=== PATIENT | female | born 1945 | race Caucasian/White ===

== ENCOUNTER 2017-09-22 23:57 | Emergency (ER) | payer MEDICARE, BC ==
[~2017-09-22] VITALS: Ht 170.2 cm; Wt 59.0 kg
[2017-09-23] MEDS ORDERED: MORPHINE SULFATE INJ 4 MG/ML DISP.SYRIN ONE (00:07)
--- NOTE | 2017-09-23 00:10 | NUR ---
TO BED 9 A 72 YO FEMALE PT BBRA FROM HOME C/O "SOB DURING INSPIRATION DUE TO UPPER BACK PAIN MAKING IT DIFFICULT TO TAKE DEEP BREATHS".PAIN 6/.SPO2 97% RA. BP 97/68 IN FIELD. UPON ARRIVAL, PATIENT IS AAOX3, VSS. NAD NOTED. SKIN WARM AND DRY. COMFORT MEASURES RENDERED. ONGOING CARDIAC AND VS MONITORING.
[2017-09-23] MEDS ORDERED: ONDANSETRON HCL/PF 4 MG/2 ML VIAL ONE (00:24)
[2017-09-23] MEDS: ONDANSETRON HCL/PF 4 MG/2 ML VIAL IV ONE (00:25)
--- NOTE | 2017-09-23 00:25 | NUR ---
started a saline lock on the left forearm g20, blood drawn and sent to lab.
[2017-09-23] MEDS: MORPHINE SULFATE INJ 2 MG/ML DISP.SYRIN IV ONE (00:28)
--- NOTE | 2017-09-23 00:30 | NUR ---
medicated patient as ordered by Dr Briscoe.
[2017-09-23 00:32] LABS: BASOPHILS % (AUTO) 0.4 % (0.0-2.0); EOSINOPHILS # (AUTO) 0.3 /CMM (0.0-0.7); EOSINOPHILS % (AUTO) 7.2 % (0.0-6.0); HEMATOCRIT 35 % (33-45); HEMOGLOBIN 11.9 g/dL (11.5-14.8); LYMPHOCYTES # (AUTO) 0.7 /CMM (0.8-4.8); LYMPHOCYTES % (AUTO) 14.7 % (20.0-44.0); MEAN CORPUSCULAR HEMOGLOBIN 32 PG (26.0-33.0); MEAN CORPUSCULAR HGB CONC 34 g/dl (31.0-36.0); MEAN CORPUSCULAR VOLUME 94 fL (82-100); MONOCYTES # (AUTO) 0.6 /CMM (0.1-1.30); MONOCYTES % (AUTO) 12.8 % (2.0-12.0); NEUTROPHILS # (AUTO) 2.9 /CMM (1.8-8.9); NEUTROPHILS % (AUTO) 64.9 % (43.0-81.0); PLATELET COUNT (AUTO) 202 /CMM (150-450); RDW COEFFICIENT OF VARIATION 13.7 (11.5-15.0); RED BLOOD CELL COUNT(AUTO) 3.67 MIL/uL (4.0-5.2); WHITE BLOOD COUNT (AUTO) 4.4 K/uL (4.3-11.0)
[2017-09-23 00:43] LABS: CALCIUM, SERUM 8.7 mg/dL (8.5-10.1); CARBON DIOXIDE 26 mmol/L (21-32); CHLORIDE 94 mmol/L (98-107); CREATININE 0.7 mg/dL (0.6-1.3); GLUCOSE 89 mg/dL (74-106); POTASSIUM 4.1 mmol/L (3.5-5.1); SODIUM SERUM 129 mmol/L (136-145); UREA NITROGEN, BLOOD 11 mg/dL (7-18)
--- NOTE | 2017-09-23 00:46 | NUR ---
WAREHOUSE DELIVERY MANAGER AT BEDSIDE.
[2017-09-23 00:47] LABS: INR 2.2 (0.87-1.13)
[2017-09-23 00:51] LABS: TROPONIN I < 0.017 ng/mL (0.00-0.056)
--- NOTE | 2017-09-23 02:49 | NUR ---
IV removed. Catheter intact and site benign. Pressure and 4x4 applied to site. No bleeding noted. Patient discharged to home in stable condition. Written and verbal after care instructions given. Patient verbalizes understanding of instruction. Patient wheeled to private car, instructed not to drive. patient was accompanied by . vss. nad noted. no further complaints.
[2017-09-23 02:50] VITALS: BP 105/60
== END 2017-09-23 02:50 | disposition home or self-care (01) ==
LOC: ER 23:58
DX: S29.012A Strain of muscle and tendon of back wall of thorax, initial encounter (principal); I48.91 Unspecified atrial fibrillation; Z88.8 Allergy status to other drugs, medicaments and biological substances; Z85.118 Personal history of other malignant neoplasm of bronchus and lung; X58.XXXA Exposure to other specified factors, initial encounter; Y93.89 Activity, other specified; Y92.89 Other specified places as the place of occurrence of the external cause; Y99.8 Other external cause status
CPT/HCPCS: 36415; 71045-TC; 76770-TC; 80048-TC; 84484-TC; 85025-TC; 85730-TC; A4606; J2270; J2405; Z7610

== ENCOUNTER 2017-10-25 13:49 | Inpatient (IN) | payer MEDICARE, BC ==
[2017-10-24 20:00] VITALS: BP 94/47
[~2017-10-25] VITALS: Ht 165.1 cm; Wt 64.0 kg
--- NOTE | 2017-10-25 14:08 | NUR ---
BIBRA C/O WEAKNESS, HYPOTENSIVE IN FIELD. RECEIVED 250 ML NS IV EN ROUTE, IV ON LEFT HAND, 20G. A/OX 2, BREATHING EVEN AND UNLABORED, BUT HYPOXIC ON ROOM AIR UPON ARRIVAL. 78% ON ROOM AIR. OXYGEN APPLIED VIA NON REBREATHER. NO DISTRESS NOTED. SAFETY AND COMFORT MEASURES IN PLACE. AWAITING MD ORDERS.
[2017-10-25] MEDS ORDERED: PIPERACILLIN /TAZOBACTAM 3.375 G in IV D5W 50 ML IV ONE (14:30)
[2017-10-25] MEDS ORDERED: ALBUTEROL FS 2.5 MG/0.5 ML VIAL.NEB NEB ONE (14:30)
[2017-10-25] MEDS ORDERED: IPRATROPIUM NEB FS 0.5 MG/2.5 ML AMPUL.NEB NEB ONE (14:30)
[2017-10-25] MEDS ORDERED: IV NS 0.9% 1,000 ML BAG IV ONE (14:30)
[2017-10-25 14:40] LABS: BASOPHILS % (AUTO) 0.6 % (0.0-2.0); EOSINOPHILS # (AUTO) 0.4 /CMM (0.0-0.7); EOSINOPHILS % (AUTO) 8.3 % (0.0-6.0); HEMATOCRIT 31 % (33-45); HEMOGLOBIN 10.8 g/dL (11.5-14.8); LYMPHOCYTES # (AUTO) 0.7 /CMM (0.8-4.8); LYMPHOCYTES % (AUTO) 15.9 % (20.0-44.0); MEAN CORPUSCULAR HEMOGLOBIN 31 PG (26.0-33.0); MEAN CORPUSCULAR HGB CONC 35 g/dl (31.0-36.0); MEAN CORPUSCULAR VOLUME 91 fL (82-100); MONOCYTES # (AUTO) 0.7 /CMM (0.1-1.30); NEUTROPHILS # (AUTO) 2.8 /CMM (1.8-8.9); NEUTROPHILS % (AUTO) 60.2 % (43.0-81.0); PLATELET COUNT (AUTO) 182 /CMM (150-450); RED BLOOD CELL COUNT(AUTO) 3.45 MIL/uL (4.0-5.2); WHITE BLOOD COUNT (AUTO) 4.6 K/uL (4.3-11.0)
[2017-10-25] MEDS ORDERED: FLEC100T2 PO (14:41)
[2017-10-25] MEDS ORDERED: ATEN25TA PO (14:41)
[2017-10-25] MEDS ORDERED: OXYC-128 PO (14:41)
[2017-10-25] MEDS ORDERED: WARF2.5T47 PO (14:41)
[2017-10-25] MEDS ORDERED: IPRATROPIUM NEB FS 0.5 MG/2.5 ML AMPUL.NEB ONE (14:45)
[2017-10-25] MEDS ORDERED: ALBUTEROL FS 2.5 MG/3 ML VIAL.NEB ONE (14:45)
[2017-10-25 14:53] LABS: CALCIUM, SERUM 8.9 mg/dL (8.5-10.1); CARBON DIOXIDE 25 mmol/L (21-32); CHLORIDE 105 mmol/L (98-107); CREATININE 1.2 mg/dL (0.6-1.3); GLUCOSE 90 mg/dL (74-106); POTASSIUM 3.5 mmol/L (3.5-5.1); SODIUM SERUM 137 mmol/L (136-145); UREA NITROGEN, BLOOD 22 mg/dL (7-18)
[2017-10-25 14:55] LABS: INR 1.5 (0.85-1.15)
[2017-10-25 14:59] LABS: ALANINE AMINOTRANSFERASE 15 U/L (12-78); ALKALINE PHOSPHATASE 98 U/L (46-116); ASPARTATE AMINOTRANSFERASE 30 U/L (15-37); BILIRUBIN,DIRECT 0.2 mg/dL (0.0-0.2); BILIRUBIN,TOTAL 0.8 mg/dL (0.2-1.0); TOTAL PROTEIN, SERUM 5.1 g/dL (6.4-8.2)
[2017-10-25 15:00] LABS: TROPONIN I 0.089 ng/mL (0.00-0.056)
--- NOTE | 2017-10-25 15:05 | NUR ---
URINE OBTAINED VIA STRAIGHT CATH AND SENT TO LAB PER MD ORDERS.
[2017-10-25 15:08] LABS: APPEARANCE,URINE Clear (CLEAR); BILIRUBIN,URINE MODERATE (NEGATIVE); BLOOD, URINE Negative Ery/uL (NEGATIVE); COLOR,URINE Dark (YELLOW); KETONES,URINE 15 (NEGATIVE); LEUKOCYTE ESTERASE ,URINE Negative (NEGATIVE); NITRITE, URINE Negative (NEGATIVE); PH,URINE 5.5 (5.0-8.0); PROTEIN,URINE 30 mg/dl (NEGATIVE); UGLUCOSE Negative (NEGATIVE); UROBILINOGEN,URINE 0.2 EU/dL (0.2)
[2017-10-25 15:13] LABS: BACTERIA,URINE Few /HPF (None Seen); SQUAMOUS EPITHELIAL CELL,UR Few /HPF (None Seen)
[2017-10-25] MEDS ORDERED: IOHEXOL-300 100 ML VIAL IV ONE (15:21)
[2017-10-25] MEDS ORDERED: CT SWABBABLE VALVE TRANS SET 1 EA INFUS.SET MC ONE (15:22)
[2017-10-25] MEDS ORDERED: IV NS 0.9% 500 ML IV ONE (15:22)
[2017-10-25] MEDS ORDERED: diphenhydrAMINE HCL 50 MG/ML VIAL ONE (15:28)
[2017-10-25] MEDS ORDERED: diphenhydrAMINE HCL 50 MG/ML VIAL IV ONE (15:30)
--- NOTE | 2017-10-25 16:51 | NUR ---
PATIENT TAKEN TO HEAD CT VIA STRETCHER.
--- NOTE | 2017-10-25 16:51 | NUR ---
UPDATED BED 113-2 CAROLINE
--- NOTE | 2017-10-25 16:59 | NUR ---
REPORT GIVEN TO STERLING LOBO FOR JOHN UPON ADMISSION.
[2017-10-25] MEDS ORDERED: oxyCODONE/APAP (5/325 MG) 1 UDTAB TABLET PO PRN (17:00)
--- NOTE | 2017-10-25 17:10 | NUR ---
PATIENT RETURNED FROM CT.
--- NOTE | 2017-10-25 17:15 | NUR ---
PATIENT TRANSPORTED TO [facility] VIA ACLS PROTOCOL. RNSTERLING TO PROVIDE JOHN.
[2017-10-25] MEDS ORDERED: MAG HYDROX/AL HYDROX/SIMETH 30 ML UDC PO PRN (17:30)
[2017-10-25] MEDS ORDERED: Z GUARD REMEDY 2 OZ OINT TP PRN (17:30)
[2017-10-25] MEDS ORDERED: ONDANSETRON HCL/PF 4 MG/2 ML VIAL IVP PRN (17:30)
[2017-10-25] MEDS ORDERED: MAGNESIUM HYDROXIDE 30 ML UDC PO PRN (17:30)
[2017-10-25] MEDS: ACETYLCYSTEINE 20% SOLN 800 MG/4 ML VIAL NEB SCH (17:30)
--- NOTE | 2017-10-25 17:30 | NUR ---
CAROLINE RN NOTE RECEIVED PT. FROM ER WITH DX HYPOTENSION, POST OBSTRUCTIVE PNA, HYPOXIA UNDER THE CARE OF DR. GENET GIRARD. PT. IS ALERT AND ORIENTED X2, ON 5LPM VIA NASAL CANNULA WITH O2 SAT OF 98%; PT. ON TELE SR 95 .LT HANF HL INTACT NO S]INFECTION NOTED , PLAN OF CARE DISCUSSED WITH PATIENT , BED IN LOWEST AND LOCKED POSITION , AT BEDSIDE , VS TAKEN WILL CONT TO MONITOR CLOSELY ,
[2017-10-25 17:43] VITALS: BP 81/47
[2017-10-25] MEDS: WARFARIN SODIUM 5 MG TABLET PO SCH (18:27)
[2017-10-25] MEDS ORDERED: WARFARIN SODIUM 2.5 MG TABLET PO SCH (18:30)
[2017-10-25] MEDS ORDERED: AZITHROMYCIN 500 MG in IV D5W 250 ML IV SCH (18:30)
[2017-10-25] MEDS: IV NS 0.9% 1,000 ML IV PRN (18:30)
[2017-10-25] MEDS: CEFTRIAXONE 1 G in IV D5W 50 ML IV SCH (19:01)
[2017-10-25 20:00] VITALS: BP 94/47
--- NOTE | 2017-10-25 20:00 | NUR ---
RN NOTES RECEIVED BEDSIDE REPORT. PT IS IS ALERT/ORIENTED X2, ON 5LPM VIA NASAL CANNULA WITH O2 SAT 96%,B/P 94/47, HR-95, IV LINE RIGHT HAND DRY, CLEAN, INTACT AND PATENT WITH NS RUNNING 75ML/HR. PT'S IS BEDSIDE, TALKED TO THE ABOUT HOME MED. DOSE. SAFETY PRECAUTIONS ARE IMPLEMENTED, BED IN LOCKED, LOWEST POSITION, SIDE RAILS UP X2, CALL LIGHT IN REACH. WILL CONTINUE CLOSE MONITORING V/S.
[2017-10-25] MEDS: ATENOLOL 25 MG TABLET PO SCH (21:00)
[2017-10-25] MEDS: FLECAINIDE ACETATE (100 MG) 100 MG TABLET PO SCH (21:27)
[2017-10-25] MEDS: DOXYCYCLINE 100 MG in IV D5W 100 ML IV SCH (21:28)
[2017-10-26] VITALS (7 sets, daily range): BP systolic 81–138; BP diastolic 47–72
[2017-10-26] MEDS: ACETYLCYSTEINE 20% SOLN 800 MG/4 ML VIAL NEB SCH ×4 (00:10→23:36)
[2017-10-26] MEDS ORDERED: IV NS 0.9% 500 ML IV ONE (01:00)
--- NOTE | 2017-10-26 01:00 | NUR ---
CAROLINE RN NOTES PT B/P IS 84/54. SPOKE TO THE DR BADILLO WITH ORDER OF NS 500ML BOLUS X1. ORDER IS NOTED AND CARED OUT. WILL CONT. TO MONITOR.
[2017-10-26] MEDS: ACETAMINOPHEN 325 MG TABLET PO PRN ×2 (01:07→20:40)
--- NOTE | 2017-10-26 06:20 | NUR ---
CAROLINE RN NOTES PT IS IN BED, A/O X3. NO LABORED BREATHING NO SOB NOTED AT THIS TIME. SATURATION WITH 5L O2 NC IS 96%, B/P 90/47. IV LINE INTACT, PATIENT AND NS 75ML/HR RUNNING. ALL SAFETY PRECAUTIONS IMPLEMENTED, BED IN LOCKED, LOWEST POSITION, CALL LIGHT IN REACH. ALL DR ORDERS CARRIED OUT IN TIMELY MANNERS. PT CARE WILL BE ENDORSED TO AM NURSE.
[2017-10-26 06:54] LABS: BASOPHILS % (AUTO) 0.4 % (0.0-2.0); EOSINOPHILS # (AUTO) 0.3 /CMM (0.0-0.7); EOSINOPHILS % (AUTO) 7.1 % (0.0-6.0); HEMATOCRIT 27 % (33-45); HEMOGLOBIN 9.1 g/dL (11.5-14.8); LYMPHOCYTES # (AUTO) 0.8 /CMM (0.8-4.8); LYMPHOCYTES % (AUTO) 20.1 % (20.0-44.0); MEAN CORPUSCULAR HEMOGLOBIN 31 PG (26.0-33.0); MEAN CORPUSCULAR HGB CONC 33 g/dl (31.0-36.0); MEAN CORPUSCULAR VOLUME 91 fL (82-100); MONOCYTES # (AUTO) 0.7 /CMM (0.1-1.30); NEUTROPHILS # (AUTO) 2.1 /CMM (1.8-8.9); NEUTROPHILS % (AUTO) 54.4 % (43.0-81.0); PLATELET COUNT (AUTO) 134 /CMM (150-450); RDW COEFFICIENT OF VARIATION 13.4 (11.5-15.0); WHITE BLOOD COUNT (AUTO) 3.9 K/uL (4.3-11.0)
[2017-10-26 07:10] LABS: INR 1.61 (0.87-1.13)
[2017-10-26 07:18] LABS: ALANINE AMINOTRANSFERASE 15 U/L (12-78); ALBUMIN 1.8 g/dL (3.4-5.0); ALKALINE PHOSPHATASE 87 U/L (46-116); ASPARTATE AMINOTRANSFERASE 25 U/L (15-37); BILIRUBIN,TOTAL 0.6 mg/dL (0.2-1.0); CALCIUM, SERUM 8.3 mg/dL (8.5-10.1); CARBON DIOXIDE 23 mmol/L (21-32); CHLORIDE 109 mmol/L (98-107); CREATININE 0.7 mg/dL (0.6-1.3); GLUCOSE 87 mg/dL (74-106); MAGNESIUM 1.3 mg/dL (1.8-2.4); PHOSPHORUS 2.9 mg/dL (2.5-4.9); POTASSIUM 2.9 mmol/L (3.5-5.1); SODIUM SERUM 141 mmol/L (136-145); TOTAL PROTEIN, SERUM 4.4 g/dL (6.4-8.2); UREA NITROGEN, BLOOD 16 mg/dL (7-18)
[2017-10-26 07:22] LABS: CHOLESTEROL 79 mg/dL (<200); HDL CHOLESTEROL 12 mg/dL (40-60); LDL 49 mg/dL (0-99); THYROID STIMULATING HORMONE 1.106 uIU/mL (0.358-3.74); TRIGLYCERIDES 99 mg/dL (30-150)
--- NOTE | 2017-10-26 08:00 | NUR ---
TD/RN AM SHIFT INITIAL NOTES RECEIVED PT AWAKE SITTING IN BED, PT A/O X 3, DENIES ANY SYMPTOMS, NO ACUTE CHANGE OF CONDITION NOTED. ON 4L O2 SATURATING @ 96%, LUNG SOUNDS DIMINISHED. RESPIRATIONS EVEN & UNLABORED. ON TELE MONITORING, SINUS RHYTHM, HR 88. WITH ON GOING IV INFUSION OF NS @ 75CC/HR, IV SITE PATENT WITH NO S/S OF INFECTION. PT IS COMFORTABLE, SCHEDULED AM MEDS TO BE GIVEN. CL WITHIN REACHED AND SAFETY MAINTAINED. ON GOING MONITORING.
[2017-10-26] MEDS: ATENOLOL 25 MG TABLET PO SCH ×2 (08:20→20:42)
[2017-10-26] MEDS: FLECAINIDE ACETATE (100 MG) 100 MG TABLET PO SCH ×2 (08:23→20:41)
--- NOTE | 2017-10-26 09:18 | NUR ---
TD/RN ROUNDS - WOUND CONSULT UPDATED PT'S CONDITION. PT SEEN & EVALUATED BY WOUND NURSE MELANIE. NO NEW ORDERS FOR SKIN TX AT THIS TIME. MONITORING CONTINUED.
--- NOTE | 2017-10-26 09:19 | NUR ---
WOUND CARE CONSULT: PT PRESENTS WITH INTACT SKIN AND SOME SCRATCH SHINE TO CHEST AND BUTTOCKS. PT STATES THAT SHE SCRATCHES HER SKIN. RECOMMENDATIONS MADE FOR SKIN PROTECTION. DISCUSSED WITH NURSING STAFF. WILL SEE PRN. CURRENT BIRD SCORE IS 12. MD IN AGREEMENT WITH PLAN OF CARE. Addendum: 10/26/17 at 0920 by MELANIE JAMES WNDNU Amended: Links added.
[2017-10-26] MEDS: DOXYCYCLINE 100 MG in IV D5W 100 ML IV SCH ×2 (09:22→20:40)
[2017-10-26] MEDS ORDERED: POTASSIUM CHLORIDE 20 MEQ TAB.PRT.SR PO ONE (10:00)
[2017-10-26] MEDS: IV NS 0.9% 1,000 ML IV PRN (10:16)
[2017-10-26 10:20] LABS: ABG BASE EXCESS -4.7 mmol/L; ABG OXYGEN SATURATION 94.2 % (92.0-98.5); ABG PCO2 34.5 mmHg (35.0-45.0); ABG PH 7.377 (7.350-7.450); ABG PO2 77.1 mmHg (75.0-100.0); AaDO2 110.7 mmHg; COHb 0.3 % (0.5-1.5); MetHb 0.5 % (0.0-1.5); O2Hb 93.4 % (94.0-97.0); SITE, ABG Right Radial; VENT MODE, BG NASAL CANNULA
[2017-10-26] MEDS ORDERED: Magnesium 1GM/D5W 100ML PREMIX PIGGYBACK IV ONE (10:30)
[2017-10-26] MEDS: Magnesium 1GM/D5W 100ML PREMIX 100 ML IV SCH ×4 (11:25→16:31)
[2017-10-26] MEDS ORDERED: Z GUARD REMEDY 4 OZ OINT TP ONE (13:00)
--- NOTE | 2017-10-26 14:45 | NUR ---
TD/RN ROUNDS PT RESTING COMFORTABLY. NO CHANGE OF CONDITION. MONITORING CONTINUED.
[2017-10-26] MEDS: ALBUTEROL HALF STRENGTH 1.25 MG/3 ML VIAL.NEB NEB SCH ×2 (15:53→19:29)
[2017-10-26] MEDS: IPRATROPIUM NEB FS 0.5 MG/2.5 ML AMPUL.NEB NEB SCH ×2 (15:53→19:29)
[2017-10-26] MEDS ORDERED: Magnesium 1GM/D5W 100ML PREMIX 100 ML IV SCH (16:00)
[2017-10-26] MEDS: GUAIFENESIN LA 600 MG TABLET.SA PO SCH ×2 (16:32→20:41)
[2017-10-26 16:58] LABS: INR 1.48 (0.87-1.13)
[2017-10-26] MEDS: WARFARIN SODIUM 5 MG TABLET PO SCH (17:30)
[2017-10-26] MEDS: CEFTRIAXONE 1 G in IV D5W 50 ML IV SCH (17:38)
--- NOTE | 2017-10-26 18:39 | NUR ---
patient is alert and pleasant. She lives locally with spouse. She is ambulatory, uses a walker as needed and she is independent with adl's. Patient owns a walker, no homehealth reported. Spouse is her primary source of support. Addendum: 10/26/17 at 1840 by JONO HOWARD RN Amended: Links added.
--- NOTE | 2017-10-26 19:23 | NUR ---
TD/RN AM SHIFT END NOTES PATIENT IS ALERT ,ORIENTED WITH PERIODS OF CONFUSION.NO ACUTE CHANGE OF CONDITION DURING THE SHIFT . ONGOING IV THERAPY WITH NS WITH 75CC/HR . IV LINE IS PATENT AND INTACT WITH NO SIGNS AND SYMPTOMS OF INFILTRATION.ON TELE MONITOR WITH NORMAL SINUS RHYTHM. ALL NEEDS MET. PATIENT IS ENDORSED TO PM NURSE TO CONTINUE CARE.SAFETY MAINTAINED ,BED ALARM IS ON,CALL LIGHT WITH IN REACHED.
--- NOTE | 2017-10-26 19:47 | NUR ---
CAROLINE RN INITIAL NOTES RECEIVED PT ASLEEP IN BED, PT A/O X 2, DENIES ANY SYMPTOMS, NO ACUTE CHANGE OF CONDITION NOTED. ON 4L O2 SATURATING @ 96%, LUNG SOUNDS DIMINISHED. RESPIRATIONS EVEN & UNLABORED. ON TELE MONITORING, SINUS RHYTHM, HR 80'S. WITH ON GOING IV INFUSION OF NS @ 75CC/HR, IV SITE PATENT WITH NO S/S OF INFECTION. PT IS COMFORTABLE. CL WITHIN REACHED AND SAFETY MAINTAINED. ON GOING MONITORING.
[2017-10-27] VITALS (7 sets, daily range): BP systolic 78–132; BP diastolic 56–84
[2017-10-27] MEDS: IPRATROPIUM NEB FS 0.5 MG/2.5 ML AMPUL.NEB NEB SCH ×5 (01:51→23:41)
[2017-10-27] MEDS: ALBUTEROL HALF STRENGTH 1.25 MG/3 ML VIAL.NEB NEB SCH ×5 (01:51→23:41)
[2017-10-27] MEDS: IV NS 0.9% 1,000 ML IV PRN ×2 (05:20→21:12)
--- NOTE | 2017-10-27 07:00 | NUR ---
RN NOTES RECEIVED PT ON BED, A/Ox1, ON 3L O2 N/C , RESPIRATION EVEN AND UNLABORED, NO SOB NOTED, ON TELE HR IN 80'S SR , NS AT 75CC/HR RUNNING VIA L HAND IV SITE G 20 , SITE CDI, SR UP x3, CALL LIGHT WITHIN EASY REACH, BED LOCKED AND IN LOWEST POSITION , CONTINUE TO MONITOR PT CLOSLEY
[2017-10-27 07:21] LABS: INR 1.64 (0.87-1.13)
[2017-10-27 07:35] LABS: INR 1.63 (0.87-1.13)
[2017-10-27] MEDS: ACETYLCYSTEINE 20% SOLN 800 MG/4 ML VIAL NEB SCH ×3 (07:56→23:40)
[2017-10-27] MEDS: FLECAINIDE ACETATE (100 MG) 100 MG TABLET PO SCH ×2 (08:08→21:15)
[2017-10-27] MEDS: GUAIFENESIN LA 600 MG TABLET.SA PO SCH ×2 (08:08→21:14)
[2017-10-27] MEDS: ATENOLOL 25 MG TABLET PO SCH ×2 (08:10→21:00)
[2017-10-27] MEDS: DOXYCYCLINE 100 MG in IV D5W 100 ML IV SCH ×2 (10:57→21:13)
--- NOTE | 2017-10-27 12:00 | NUR ---
RN NOTES SLIGHT REDNESS AND SWELLING NOTED ON L HAND IV SITE . H/L D/ROXI, NEW IV G 22 PLACED ON R WRIST.
[2017-10-27] MEDS: ACETAMINOPHEN 325 MG TABLET PO PRN (15:06)
[2017-10-27] MEDS: WARFARIN SODIUM 5 MG TABLET PO SCH (17:24)
[2017-10-27] MEDS: CEFTRIAXONE 1 G in IV D5W 50 ML IV SCH (17:24)
--- NOTE | 2017-10-27 19:00 | NUR ---
RN SHIT END NOTES: PATIENT IS ALERT WITH PERIODS OF CONFUSION NOTED.ON O2 VIA NASAL CANULA SATURATING 98%.IV PAULINO IS PATENT ON THE RIGHT HAND.NO SIGNS AND SYMPTOMS OF DISTRESS NOTED.BED IS LOCKED AND IN LOW POSITION,CALL LIGHT IN REACH,SAFETY MAINTAINED.ENDORSED TO PM NURSE FOR JOHN
--- NOTE | 2017-10-27 19:00 | NUR ---
MS RN NOTES RECEIVE PT IN BED A/O X 2, NO S/S OF DISTRESS, STABLE, SAFETY MEASURES IN PLACE, CALL LIGHT WITHIN REACH, WILL CONTINUE TO MONITOR
[2017-10-28] VITALS: BP 119/80
[2017-10-28 04:00] VITALS: BP 116/72
--- NOTE | 2017-10-28 06:27 | NUR ---
FAMILY RESOURCE SPECIALIST CLOSING NOTES PT ASLEEP AND EASILY AWAKEN, PT A/O X 1 WITH PERIOD OF FORGETFULNESS, ON 3LPM VIA NC 02 SAT 98% RESPIRATIONS EVEN AND UNLABORED. NOT IN DISTRESS, STABLE CONDITION, NO ACUTE CHANGES THROUGHOUT THE SHIFT. KEPT CLEAN AND DRY AND COMFORT. NURSING CARE RENDERED. NEEDS ATTENDED AND ANTICIPATED. ASSISTED REPOSITION PATIENT Q2H. GOOD SKIN CARE PROVIDED. ON LOW BED TO ENSURE SAFETY, CALL LIGHT WITHIN REACH, WILL ENDORSE TO THE NEXT SHIFT CONTINUE PLAN OF CARE, ATT Addendum: 10/28/17 at 0631 by NANDINI JACKSON RN ATTACH TO TELE MONITOR SR 95
[2017-10-28 07:08] LABS: INR 1.78 (0.87-1.13)
[2017-10-28] MEDS: ACETYLCYSTEINE 20% SOLN 800 MG/4 ML VIAL NEB SCH ×2 (07:24→14:58)
[2017-10-28] MEDS: ALBUTEROL HALF STRENGTH 1.25 MG/3 ML VIAL.NEB NEB SCH ×3 (07:24→19:18)
[2017-10-28] MEDS: IPRATROPIUM NEB FS 0.5 MG/2.5 ML AMPUL.NEB NEB SCH ×3 (07:24→19:19)
--- NOTE | 2017-10-28 07:30 | NUR ---
MANAGER PAYER OPENING NOTE PATIENT IS ALERT AND ORIENTED x1-2, CONFUSED WILL NEED REORIENTATION. NO FACIAL GRIMACING NOTED FOR PAIN. NO SOB OR DISTRESS NOTED. CALL LIGHT WITHIN REACH. SAFETY MEASURES IMPLEMENTED. BEDREST AT THIS TIME. ON 3L/MIN OF OXYGEN VIA NASAL CANNULA TOLERATING WELL AT 95%. PENDING LABS THIS MORNING. IV INTACT AND PATENT NO REDNESS OR SWELLING NOTED WITH IV FLUIDS RUNNING AT 75 ML/HR. WILL CONTINUE TO MONITOR THROUGHOUT SHIFT.
[2017-10-28] MEDS: FLECAINIDE ACETATE (100 MG) 100 MG TABLET PO SCH ×2 (08:23→20:49)
[2017-10-28] MEDS: ATENOLOL 25 MG TABLET PO SCH ×2 (08:23→20:50)
[2017-10-28] MEDS: GUAIFENESIN LA 600 MG TABLET.SA PO SCH ×2 (08:23→20:49)
[2017-10-28] MEDS: DOXYCYCLINE 100 MG in IV D5W 100 ML IV SCH (08:49)
[2017-10-28 10:00] VITALS: BP 114/69
[2017-10-28 14:42] LABS: ALANINE AMINOTRANSFERASE 16 U/L (12-78); ALBUMIN 1.9 g/dL (3.4-5.0); ALKALINE PHOSPHATASE 110 U/L (46-116); ASPARTATE AMINOTRANSFERASE 27 U/L (15-37); BILIRUBIN,TOTAL 0.9 mg/dL (0.2-1.0); CALCIUM, SERUM 8.7 mg/dL (8.5-10.1); CARBON DIOXIDE 22 mmol/L (21-32); CHLORIDE 104 mmol/L (98-107); CREATININE 0.6 mg/dL (0.6-1.3); GLUCOSE 75 mg/dL (74-106); SODIUM SERUM 137 mmol/L (136-145); TOTAL PROTEIN, SERUM 4.8 g/dL (6.4-8.2); UREA NITROGEN, BLOOD 9 mg/dL (7-18)
[2017-10-28] MEDS ORDERED: POTASSIUM CHLORIDE 20 MEQ TAB.PRT.SR PO ONE (15:30)
[2017-10-28] MEDS: Magnesium 1GM/D5W 100ML PREMIX 100 ML IV SCH ×2 (15:41→16:50)
--- NOTE | 2017-10-28 15:45 | NUR ---
MS RN NOTE RECEIVED ORDERS TO REPLACE MAGNESIUM-1.3 AND POTASSIUM-2.9. NOTED AND CARRIED OUT.
[2017-10-28] MEDS: ACETAMINOPHEN 325 MG TABLET PO PRN (16:50)
[2017-10-28] MEDS: WARFARIN SODIUM 5 MG TABLET PO SCH (16:52)
[2017-10-28] MEDS: CEFTRIAXONE 1 G in IV D5W 50 ML IV SCH (17:57)
[2017-10-28] MEDS: IV NS 0.9% 1,000 ML IV PRN (18:02)
--- NOTE | 2017-10-28 18:42 | NUR ---
MS RN CLOSING NOTE PATIENT RESTING COMFORTABLY AT THIS TIME. NO PAIN NOTED. NO SOB OR DISTRESS NOTED. CALL LIGHT WITHIN REACH AT ALL TIMES. SAFETY MEASURES IMPLEMENTED. ABLE TO COMMUNICATE NEEDS. ALL DUE MEDICATIONS GIVEN ORDERED, ALL ELECTROLYTES REPLACED. ALL NURSING CARE NEEDS ATTENDED TO NEEDED. ON 3L/MIN OF OXYGEN VIA NASAL CANNULA TOLERATING WELL. IV INTACT AND PATENT NO REDNESS OR SWELLING NOTED WITH IV FLUIDS RUNNING AT THIS TIME AT 75 ML/HR. LABS IN THE MORNING. WILL ENDORSE TO HOGSHEAD STRIPPER NURSE FOR JOHN
--- NOTE | 2017-10-28 20:00 | NUR ---
MS RN NOTE PT IN BED AWAKE. A/O 1-2 CONFUSED. NO SOB, NO DISTRESS OR DISCOMFORT NOTED. DENIES PAIN. ON 3L O2 VIA N/C O2 SAT 93%. IVF NS @ 75 ML/HR LT WRIST #22 G INTACT AND PATENT, NO S/S OF INFILTRATION NOTED. AT BED SIDE. SIDE RAILS UP X 2 AND CALL LIGHT WITHIN REACH. VSS. CONTINUE TO MONITOR HER.
[2017-10-28] MEDS: DOXYCYCLINE HYCLATE (100 MG) 100 MG TABLET PO SCH (20:49)
[2017-10-29] VITALS: BP 122/72
[2017-10-29] MEDS: ACETYLCYSTEINE 20% SOLN 800 MG/4 ML VIAL NEB SCH ×4 (00:34→23:58)
[2017-10-29] MEDS: ALBUTEROL HALF STRENGTH 1.25 MG/3 ML VIAL.NEB NEB SCH ×2 (00:35→07:35)
[2017-10-29] MEDS: IPRATROPIUM NEB FS 0.5 MG/2.5 ML AMPUL.NEB NEB SCH ×4 (00:35→20:28)
[2017-10-29 04:00] VITALS: BP 125/75
--- NOTE | 2017-10-29 06:34 | NUR ---
MS RN NOTE PT IN BED ASLEEP, NO DISTRESS OR DISCOMFORT NOTED. IVF INFUISNG WELL, NO S/S OF INFILTRATION NOTED. ALL NEEDS ATTENDED. SIDE RIALS UP X 3 AND CALL LIGHT WITHIN REACH. WILL ENDORSE TO DAY SHIFT NURSE FOR CONTINUE TO CARE.
--- NOTE | 2017-10-29 07:30 | NUR ---
ms rn initial notes Received patient in bed, asleep, on 02 @ 3lpm via NC with 02 sat of 92%, HR of 130. Respiratory therapy on site and about to give treatment but held due to HR is elevated. IV intact and patent with IVF infusing well. Will inform MD about HR. call light with in patient reach, will continue to monitor accordingly. Patient is confused alert and oriented x 1.
[2017-10-29 07:34] LABS: CALCIUM, SERUM 8.3 mg/dL (8.5-10.1); CARBON DIOXIDE 23 mmol/L (21-32); CHLORIDE 102 mmol/L (98-107); CREATININE 0.6 mg/dL (0.6-1.3); GLUCOSE 88 mg/dL (74-106); MAGNESIUM 1.6 mg/dL (1.8-2.4); PHOSPHORUS 2.8 mg/dL (2.5-4.9); POTASSIUM 3.2 mmol/L (3.5-5.1); SODIUM SERUM 136 mmol/L (136-145); UREA NITROGEN, BLOOD 9 mg/dL (7-18)
[2017-10-29 07:46] LABS: BASOPHILS % (AUTO) 0.2 % (0.0-2.0); EOSINOPHILS # (AUTO) 0.4 /CMM (0.0-0.7); EOSINOPHILS % (AUTO) 6.7 % (0.0-6.0); HEMATOCRIT 32 % (33-45); HEMOGLOBIN 11.2 g/dL (11.5-14.8); LYMPHOCYTES % (AUTO) 15.6 % (20.0-44.0); MEAN CORPUSCULAR HEMOGLOBIN 31 PG (26.0-33.0); MEAN CORPUSCULAR HGB CONC 35 g/dl (31.0-36.0); MEAN CORPUSCULAR VOLUME 90 fL (82-100); MONOCYTES # (AUTO) 1.2 /CMM (0.1-1.30); MONOCYTES % (AUTO) 19.3 % (2.0-12.0); NEUTROPHILS # (AUTO) 3.5 /CMM (1.8-8.9); NEUTROPHILS % (AUTO) 58.2 % (43.0-81.0); PLATELET COUNT (AUTO) 133 /CMM (150-450); RDW COEFFICIENT OF VARIATION 13.7 (11.5-15.0); RED BLOOD CELL COUNT(AUTO) 3.57 MIL/uL (4.0-5.2); WHITE BLOOD COUNT (AUTO) 6.1 K/uL (4.3-11.0)
[2017-10-29 08:00] VITALS: BP 162/84
--- NOTE | 2017-10-29 08:09 | NUR ---
Breathing tx not given due to elevated HR....Nurse was notified. Sat93% HR133
[2017-10-29] MEDS: DOXYCYCLINE HYCLATE (100 MG) 100 MG TABLET PO SCH ×2 (08:34→21:44)
[2017-10-29] MEDS: GUAIFENESIN LA 600 MG TABLET.SA PO SCH ×2 (08:35→21:44)
[2017-10-29] MEDS: ATENOLOL 25 MG TABLET PO SCH ×2 (08:35→21:00)
[2017-10-29] MEDS: FLECAINIDE ACETATE (100 MG) 100 MG TABLET PO SCH ×2 (08:36→21:47)
--- NOTE | 2017-10-29 09:17 | NUR ---
MS RN NOTES Dr. Serrano on site and informed about patient breathing and HR and held breathing treatment this morning and MD ordered to d/c albuterol. All orders carried out and noted. will continue to monitor accordingly.
[2017-10-29 10:00] VITALS: BP 162/84
[2017-10-29] MEDS ORDERED: POTASSIUM CHLORIDE 20 MEQ TAB.PRT.SR PO SCH (10:00)
[2017-10-29] MEDS: Magnesium 1GM/D5W 100ML PREMIX 100 ML IV SCH ×2 (10:14→11:35)
[2017-10-29] MEDS: IV NS 0.9% 1,000 ML IV PRN (10:15)
[2017-10-29] MEDS: Potassium Chloride 10 MEQ in IV D5W 50 ML IV SCH ×4 (11:03→15:09)
[2017-10-29 12:38] LABS: MONOCYTES % (MANUAL) 15 % (0-11.0)
[2017-10-29 12:39] LABS: EOSINOPHILS % (MANUAL) 5 % (0-4); LYMPHOCYTES % (MANUAL) 10 % (16-48); NEUTROPHILS % (MANUAL) 70 (42-76)
[2017-10-29 16:00] VITALS: BP 106/59
[2017-10-29] MEDS: WARFARIN SODIUM 5 MG TABLET PO SCH (16:13)
--- NOTE | 2017-10-29 16:14 | NUR ---
MS RN NOTES Hold coumadin dose today and until further order by Dr. Serrano. Family was at bedside earlier when Dr. Serrano explained the reason for holding coumadin dose, a preparation for plan procedure. Will continue to monitor.
[2017-10-29] MEDS: CEFTRIAXONE 1 G in IV D5W 50 ML IV SCH (17:00)
[2017-10-29] MEDS: ACETAMINOPHEN 325 MG TABLET PO PRN (17:00)
--- NOTE | 2017-10-29 19:11 | NUR ---
ms rn closing notes All needs provided, attended, and anticipated. Endorsed about coumadin to hold until further order by Dr. Serrano and to endorse to morning shift RN. Call light with in patient reach. In stable condition at this time.
--- NOTE | 2017-10-29 19:50 | NUR ---
RN NOTE REPORT PROVIDED TO ULICES LOBO CAROLINE, PATIENT WILL BE UNDER HER CARE
--- NOTE | 2017-10-29 19:55 | NUR ---
RN MS NOTES, RECEIVED PATIENT FROM LASHELL PHILLIPS FOR CONTINUATION OF CARE, PATIENT SLEEPING IN BED, BUT EASILY AROUSABLE NO SOB/ACUTE DISTRESS NOTED AT THIS TIME, WITH O2 SAT>96%, BED IN LOWEST POSITION, NOTED DRY AND CLEAN, REPOSITION PROVIDED, VALL LIGHT W/I REACH, WILL CONTINUE TO MONITOR CLOSELY.
[2017-10-29 22:00] VITALS: BP 90/58
--- NOTE | 2017-10-30 01:35 | NUR ---
RN MS NOTES, ENDORSED PATIENT TO LASHELL REDDY FOR CONTINUATION OF CARE.
--- NOTE | 2017-10-30 01:37 | NUR ---
RN MS NOTES RECIEVED PATIENT AND REPORT FROM LASHELL ELENA
[2017-10-30] MEDS: IPRATROPIUM NEB FS 0.5 MG/2.5 ML AMPUL.NEB NEB SCH ×4 (01:58→19:56)
--- NOTE | 2017-10-30 02:10 | NUR ---
RN NOTES RECEIVED REPORT FROM LASHELL REDDY. PT SLEEPING IN BED. NO APPARENT S/S OF PAIN, DISTRESS OR SOB AT THIS TIME. SAFETY PRECAUTIONS IN PLACE. WILL CONTINUE TO MONITOR.
--- NOTE | 2017-10-30 02:30 | NUR ---
ASBESTOS TEXTILE SUPERVISOR NOTES GAVE PATIENT AND REPORT TO WENDY LOBO
[2017-10-30] MEDS: IV NS 0.9% 1,000 ML IV PRN ×2 (04:40→20:27)
--- NOTE | 2017-10-30 06:50 | NUR ---
RN CLOSING NOTES PT RESTING IN BED. PT CONFUSED. NO APPARENT S/S OF PAIN DISTRESS OR SOB OVERNIGHT. PT HAS A RIGHT WRIST IV #22 RUNNING NS @75ML/HR. PT TOLERATING FLUID WELL. ALL PATIENT NEEDS MET. SAFETY PRECAUTIONS IN PLACE. BED IN LOWEST, LOCKED POSITION, X3 SIDERAILS UP. CALL LIGHT WITHIN REACH. WILL ENDORSE TO DAY SHIFT NURSE FOR CONTINUITY OF CARE.
[2017-10-30 06:58] LABS: BASOPHILS % (AUTO) 0.3 % (0.0-2.0); EOSINOPHILS # (AUTO) 0.5 /CMM (0.0-0.7); EOSINOPHILS % (AUTO) 6.1 % (0.0-6.0); HEMATOCRIT 29 % (33-45); HEMOGLOBIN 9.6 g/dL (11.5-14.8); LYMPHOCYTES # (AUTO) 0.8 /CMM (0.8-4.8); LYMPHOCYTES % (AUTO) 10.8 % (20.0-44.0); MEAN CORPUSCULAR HEMOGLOBIN 30 PG (26.0-33.0); MEAN CORPUSCULAR HGB CONC 33 g/dl (31.0-36.0); MEAN CORPUSCULAR VOLUME 91 fL (82-100); MONOCYTES # (AUTO) 1.3 /CMM (0.1-1.30); MONOCYTES % (AUTO) 17.1 % (2.0-12.0); NEUTROPHILS % (AUTO) 65.7 % (43.0-81.0); PLATELET COUNT (AUTO) 150 /CMM (150-450); RDW COEFFICIENT OF VARIATION 14.4 (11.5-15.0); RED BLOOD CELL COUNT(AUTO) 3.16 MIL/uL (4.0-5.2); WHITE BLOOD COUNT (AUTO) 7.6 K/uL (4.3-11.0)
[2017-10-30 07:09] LABS: INR 2.56 (0.87-1.13)
[2017-10-30 07:25] LABS: CALCIUM, SERUM 8.2 mg/dL (8.5-10.1); CARBON DIOXIDE 26 mmol/L (21-32); CHLORIDE 106 mmol/L (98-107); CREATININE 0.6 mg/dL (0.6-1.3); GLUCOSE 83 mg/dL (74-106); MAGNESIUM 1.8 mg/dL (1.8-2.4); PHOSPHORUS 3.2 mg/dL (2.5-4.9); POTASSIUM 3.4 mmol/L (3.5-5.1); SODIUM SERUM 138 mmol/L (136-145); UREA NITROGEN, BLOOD 10 mg/dL (7-18)
[2017-10-30] MEDS: ACETYLCYSTEINE 20% SOLN 800 MG/4 ML VIAL NEB SCH ×3 (07:25→23:30)
[2017-10-30 08:00] VITALS: BP 103/70
--- NOTE | 2017-10-30 08:00 | NUR ---
ms rn received on bed,awake,alert, oriented x 1,confuse, not in any form of distress, respirations even and unlabored,no sob noted, lungs are diminished,abdomen soft,positive bowel sounds, will monitor patient's condition.
--- NOTE | 2017-10-30 08:11 | NUR ---
WOUND CARE CONSULT: PT PRESENTS WITH RASH TO PERINEUM, INNER THIGHS AND BUTTOCKS. PT ALSO NOTED TO HAVE REDNESS TO FACE AROUND MOUTH AREA AND REDNESS TO LEFT HAND AND ARM. RECOMMENDATIONS MADE FOR RASH CARE OF BUTTOCKS/PERINEAL AREAS AND DISCUSSED WITH NURSING STAFF. REDNESS TO FACE AND ARM DISCUSSED WITH NURSING STAFF AND MEDICAL GENETICIST. DEFER TO MD. PT NOTED TO BE SCRATCHING HER SKIN. SCRATCHING DISCOURAGED. NO OPEN WOUNDS NOTED. ALL SKIN PROTECTION MEASURES IN PLACE AND DISCUSSED WITH NURSING STAFF. MD IN AGREEMENT WITH PLAN OF CARE. Addendum: 10/30/17 at 0814 by MELANIE JAMES WNDNU Amended: Links added.
--- NOTE | 2017-10-30 08:30 | NUR ---
ms rn due meds given,tolerated well.
[2017-10-30] MEDS: CLOTRIMAZOLE/BETAMETASONE DIPROPIONATE 15 GM TUBE TP SCH ×2 (09:51→18:18)
[2017-10-30] MEDS: DOXYCYCLINE HYCLATE (100 MG) 100 MG TABLET PO SCH ×2 (09:51→20:27)
[2017-10-30] MEDS: GUAIFENESIN LA 600 MG TABLET.SA PO SCH ×2 (09:51→20:27)
[2017-10-30] MEDS: ATENOLOL 25 MG TABLET PO SCH ×2 (09:52→20:28)
[2017-10-30] MEDS: FLECAINIDE ACETATE (100 MG) 100 MG TABLET PO SCH ×2 (09:52→20:27)
[2017-10-30 10:00] VITALS: BP 103/70
[2017-10-30] MEDS ORDERED: POTASSIUM CHLORIDE 20 MEQ TAB.PRT.SR PO SCH (10:00)
--- NOTE | 2017-10-30 11:00 | NUR ---
ms trust and estates attorney at bedside,no distress noted,.
[2017-10-30 11:03] LABS: LYMPHOCYTES % (MANUAL) 10 % (16-48); MONOCYTES % (MANUAL) 10 % (0-11.0); NEUTROPHILS % (MANUAL) 73 (42-76)
[2017-10-30 11:04] LABS: EOSINOPHILS % (MANUAL) 7 % (0-4)
[2017-10-30 16:00] VITALS: BP 100/62
[2017-10-30] MEDS ORDERED: PHYTONADIONE INJ 10 MG/1 ML AMPUL SQ ONE (17:00)
--- NOTE | 2017-10-30 18:10 | NUR ---
ms rn on bed, no change of condition.
[2017-10-30] MEDS: CEFTRIAXONE 1 G in IV D5W 50 ML IV SCH (18:17)
[2017-10-30] MEDS: POTASSIUM CL. PREMIX PERIPHER. 50 ML IV SCH ×2 (19:27→21:06)
[2017-10-30 20:00] VITALS: BP 103/70
--- NOTE | 2017-10-30 20:00 | NUR ---
MS/RN OPENING NOTES PATIETN IN BED, RESTING COMFORTABLY IN BED, HAVING BREATHING TREATMENT, SKIN WARM TO TOUCH, IV ON RIGHT HAND W/ NO S/S OF INFILTRATION, IV PITASSIUM RUNNING, WILL TURN AND REPOSITION, APPLY SKIN BARRIER ON SARAL AREA, ISOFLEX BED TO BE USED, WILL MONITOR, RECEIVED ENDORSEMENT FROM AM RN FOR JOHN, BED IN LOCK POSITION, CALL LIGHTS WITHIN REACH.
[2017-10-30 22:00] VITALS: BP 103/70
--- NOTE | 2017-10-30 22:00 | NUR ---
ms/rn notes PATIENT PO MEDICATIONS WAS SCANNED, BUT WAS WASTED PATIENT UNABLE TO SWALLOW PROPERLY. NPO WAS ORDERED AND CLARIFIED.
[2017-10-31] VITALS (14 sets, daily range): BP systolic 85–158; BP diastolic 37–80
[2017-10-31] MEDS: IPRATROPIUM NEB FS 0.5 MG/2.5 ML AMPUL.NEB NEB SCH ×4 (01:30→19:43)
--- NOTE | 2017-10-31 06:00 | NUR ---
MS RN NOTES: RECEIVED PT FROM RNMARIANGEL. RECEIVED PT AND IS ON 3LPM VIA NC. PT IS A/OX1 AND IS CONFUSED. BED ALARM ACTIVATED. PT HAS IV AND IS BEING INFUSED WITH NS 75ML/HR. CALL LIGHT WITHIN PT'S REACH. BED KEPT IN LOW, LOCKED POSITION, AND SIDE RAILS X 3 UP. WILL CONTINUE TO MONITOR PT.
--- NOTE | 2017-10-31 06:00 | NUR ---
MS/RN NOTES PATIENT TRANSFERED TO MED SURG 2ND FLOOR, ON A GURNEY, REPORT GIVEN TO ELAYNE LOBO FOR JOHN.
[2017-10-31 06:39] LABS: BASOPHILS % (AUTO) 0.3 % (0.0-2.0); EOSINOPHILS # (AUTO) 0.6 /CMM (0.0-0.7); EOSINOPHILS % (AUTO) 5.7 % (0.0-6.0); HEMATOCRIT 30 % (33-45); HEMOGLOBIN 9.7 g/dL (11.5-14.8); LYMPHOCYTES # (AUTO) 1.1 /CMM (0.8-4.8); LYMPHOCYTES % (AUTO) 10.5 % (20.0-44.0); MEAN CORPUSCULAR HEMOGLOBIN 30 PG (26.0-33.0); MEAN CORPUSCULAR HGB CONC 33 g/dl (31.0-36.0); MEAN CORPUSCULAR VOLUME 91 fL (82-100); MONOCYTES # (AUTO) 1.6 /CMM (0.1-1.30); MONOCYTES % (AUTO) 15.8 % (2.0-12.0); NEUTROPHILS # (AUTO) 6.9 /CMM (1.8-8.9); NEUTROPHILS % (AUTO) 67.7 % (43.0-81.0); PLATELET COUNT (AUTO) 162 /CMM (150-450); RDW COEFFICIENT OF VARIATION 14.9 (11.5-15.0); RED BLOOD CELL COUNT(AUTO) 3.23 MIL/uL (4.0-5.2); WHITE BLOOD COUNT (AUTO) 10.2 K/uL (4.3-11.0)
[2017-10-31 06:47] LABS: INR 2.17 (0.87-1.13)
[2017-10-31 06:52] LABS: CALCIUM, SERUM 8.4 mg/dL (8.5-10.1); CARBON DIOXIDE 24 mmol/L (21-32); CHLORIDE 107 mmol/L (98-107); CREATININE 0.5 mg/dL (0.6-1.3); GLUCOSE 73 mg/dL (74-106); MAGNESIUM 1.6 mg/dL (1.8-2.4); PHOSPHORUS 3.1 mg/dL (2.5-4.9); POTASSIUM 3.7 mmol/L (3.5-5.1); SODIUM SERUM 141 mmol/L (136-145); UREA NITROGEN, BLOOD 13 mg/dL (7-18)
[2017-10-31] MEDS: ACETYLCYSTEINE 20% SOLN 800 MG/4 ML VIAL NEB SCH ×3 (07:44→22:44)
--- NOTE | 2017-10-31 07:44 | NUR ---
MS RN CLOSING NOTES: ALL NEEDS WERE ATTENDED AND ANTICIPATED FOR. PT ON 3LPM VIA NC. PT IS GETTING BREATHING TREATMENT RIGHT NOW WITH RESPIRATORY THERAPIST. PT HAS IV AND IS BEING INFUSED WITH NS AT 75ML/HR. BED ALARM ACTIVATED. CALL LIGHT WITHIN PT'S REACH. BED KEPT IN LOW, LOCKED POSITION, AND SIDE RAILS X 2UP. ENDORSED TO AM NURSE FOR JOHN.
[2017-10-31] MEDS: DOXYCYCLINE HYCLATE (100 MG) 100 MG TABLET PO SCH ×2 (09:00→21:00)
[2017-10-31] MEDS: FLECAINIDE ACETATE (100 MG) 100 MG TABLET PO SCH ×2 (09:00→21:00)
[2017-10-31] MEDS: ATENOLOL 25 MG TABLET PO SCH ×2 (09:00→21:00)
[2017-10-31] MEDS: GUAIFENESIN LA 600 MG TABLET.SA PO SCH ×2 (09:00→21:00)
--- NOTE | 2017-10-31 09:41 | NUR ---
PER DR SHUKLA 5 MG VITAMIN K SUBCUTANEOUS TODAY REPEAT INR TOMORROW HAVE 2 UNITS OF FFP (FRESH FROZEN PLASMA ) READY FOR TOMORROW
[2017-10-31] MEDS ORDERED: PHYTONADIONE INJ 10 MG/1 ML AMPUL SQ ONE (10:00)
[2017-10-31] MEDS: CLOTRIMAZOLE/BETAMETASONE DIPROPIONATE 15 GM TUBE TP SCH ×2 (10:08→17:30)
[2017-10-31] MEDS: IV NS 0.9% 1,000 ML IV PRN (10:11)
--- NOTE | 2017-10-31 12:00 | NUR ---
PATIENT CURRENTLY NPO. UNABLE TO TOLERATE PO FEEDING WELL PO MEDICATIONS. HECTRO DOLAN LOMBARDI DEVELOPER NOTIFIED
--- NOTE | 2017-10-31 14:05 | NUR ---
3 KAHN RINGS REMOVED BY FAMILY AND TAKEN BY FAMILY HOME
[2017-10-31] MEDS: Magnesium 1GM/D5W 100ML PREMIX 100 ML IV SCH ×2 (14:08→17:28)
[2017-10-31] MEDS ORDERED: IV D5/ 0.9% NACL 1,000 ML IV ONE (14:30)
--- NOTE | 2017-10-31 14:31 | NUR ---
BLOOD SUGAR AT 58. PATIENT RESPONSIVE, CLEAR SPEECH. HECTOR DOLAN AVAYA ENGINEER NOTIFIED. ORDERED D5NS AT 75 ML HOUR
--- NOTE | 2017-10-31 14:40 | NUR ---
RN NOTES: PATIENT RESPONSIVE CLEAR SPEECH. NO ONSET OF WEAKNESS NOTED. BS WNL
[2017-10-31] MEDS: IV D5/ 0.9% NACL 1,000 ML IV PRN (14:45)
--- NOTE | 2017-10-31 16:00 | NUR ---
BLOOD SUGAR READINGS- 1442:73, 1507:70 1549:80
[2017-10-31] MEDS: CEFTRIAXONE 1 G in IV D5W 50 ML IV SCH (18:55)
--- NOTE | 2017-10-31 19:25 | NUR ---
RN CLOSING NOTES: PATIENT RESTING IN BED. PATIENT AOX 1-2, RESPONSIVE. NONLABORED BREATHING NOTED ON 4L. IV SITES ON RIGHT HAND AND LEFT HAND 22 PATENT AND INTACT. NO FACIAL GRIMACING NOTED. PATIENT STABLE THROUGHOUT SHIFT. ASPIRATION PRECAUTIONS IMPLEMENTED WELL FALL PRECAUTIONS. BLOOD TRANSFUSION AND THORACENTESIS CONSENTED BY , CONSENT IN CHART. FFP TO BE TRANSFUSED AT [address] PATEL ORDERS. 2 UNITS ORDERED. BED IN LOWEST LOCKED POSITION. CALL LIGHT WITHIN REACH. ENDORSED TO NEXT SHIFT
--- NOTE | 2017-10-31 19:30 | NUR ---
RN NOTES RECEIVED PATIENT IN BED AWAKE, AO X 1, ABLE TO MAKE NEEDS KNOWN. NO ACUTE DISTRESS NOTED. NO SIGNS OF PAIN NOTED. IV SITE PATENT, INTACT; IVF INFUSING ORDERED. SAFETY REMINDERS GIVEN. ON LOW BED WITH BILATERAL UPPER SIDE RAILS UP. CALL JOHNS WITHIN EASY REACH. WILL CONTINUE TO MONITOR.
--- NOTE | 2017-10-31 19:30 | NUR ---
RN NOTES RECEIVED PATIENT AMBULATING IN HALLWAY, AO X 3, ABLE TO MAKE NEEDS KNOWN. NO ACUTE DISTRESS NOTED. NO SIGNS OF PAIN NOTED. IV SITE PATENT, INTACT; FLUSHED. SAFETY REMINDERS GIVEN. ROOM HAS LOW BED WITH BILATERAL UPPER SIDE RAILS UP. CALL JOHNS WITHIN EASY REACH. WILL CONTINUE TO MONITOR.
--- NOTE | 2017-10-31 21:48 | NUR ---
RN NOTES PATIENT TOLERATED FFP TRANSFUSION. NO ADVERSE REACTION NOTED.
--- NOTE | 2017-10-31 23:16 | NUR ---
RN NOTES PATIENT TOLERATED FFP TRANSFUSION. NO ADVERSE REACTION NOTED.
[2017-11-01] VITALS (21 sets, daily range): BP systolic 80–110; BP diastolic 46–73
--- NOTE | 2017-11-01 00:36 | NUR ---
RN NOTES PATIENT BECAME AGITATED; WANTING TO GO HOME; TRYING TO GET OUT OF BED; POOR SAFETY AWARENESS. DR. CLARK MADE AWARE WITH NEW ORDER FOR ATIVAN 0.5 MG IV Q 6 HOURS PRN, NOTED AND CARRIED OUT.
[2017-11-01] MEDS: LORAZEPAM INJ 2 MG/ML VIAL IV PRN (01:45)
[2017-11-01] MEDS: IPRATROPIUM NEB FS 0.5 MG/2.5 ML AMPUL.NEB NEB SCH ×4 (01:55→20:02)
--- NOTE | 2017-11-01 06:00 | NUR ---
N NOTES PATIENT IN BED WITH EYES CLOSED, EASILY AROUSABLE. RESPIRATIONS EVEN. NO SIGNS OF PAIN NOTED. NEEDS ATTENDED. KEPT NPO. KEPT CLEAN, DRY, AND COMFORTABLE. SAFETY PRECAUTIONS AND COMFORT MEASURES IN PLACE. WILL GIVE REPORT TO DAY SHIFT FOR CONTINUITY OF CARE.
--- NOTE | 2017-11-01 07:15 | NUR ---
RN INITIAL NOTES: PATIENT RESTING IN BED. NONLABORED BREATHING ON 4 L NASAL CANNULA. PATIENT RESPONSIVE TO NAME, STIMULI. AOX1-2 WITH PERIODS OF CONFUSION. CLEAR SPEECH NOTED. IV SITE ON LEFT WRIST GAUGE 22 PATENT AND INTACT. NO FACIAL GRIMACING NOTED AT THE MOMENT. WILL CONTINUE TO MONITOR
[2017-11-01] MEDS: ACETYLCYSTEINE 20% SOLN 800 MG/4 ML VIAL NEB SCH (08:30)
[2017-11-01] MEDS: FLECAINIDE ACETATE (100 MG) 100 MG TABLET PO SCH ×2 (09:00→20:13)
[2017-11-01] MEDS: DOXYCYCLINE HYCLATE (100 MG) 100 MG TABLET PO SCH ×2 (09:00→20:13)
[2017-11-01] MEDS: ATENOLOL 25 MG TABLET PO SCH ×2 (09:00→20:13)
[2017-11-01] MEDS: GUAIFENESIN LA 600 MG TABLET.SA PO SCH ×2 (09:00→20:13)
[2017-11-01 09:07] LABS: INR 1.22 (0.87-1.13)
[2017-11-01 09:11] LABS: CALCIUM, SERUM 8.6 mg/dL (8.5-10.1); CARBON DIOXIDE 28 mmol/L (21-32); CHLORIDE 109 mmol/L (98-107); CREATININE 0.6 mg/dL (0.6-1.3); GLUCOSE 123 mg/dL (74-106); MAGNESIUM 1.8 mg/dL (1.8-2.4); PHOSPHORUS 3.4 mg/dL (2.5-4.9); POTASSIUM 3.6 mmol/L (3.5-5.1); SODIUM SERUM 143 mmol/L (136-145); UREA NITROGEN, BLOOD 14 mg/dL (7-18)
--- NOTE | 2017-11-01 09:12 | NUR ---
DR SHUKLA AWARE OF INR OF 1.22, PATIENT TO UNDERGO THORACENTESIS TODAY OF RIGHT LUNG PER HIS ORDERS. ALSO HE ORDERED A CHEST XRAY POST THORACENTESIS. LOVENOX AND COUMADIN TO BE STARTED AFTER [address] SHUKLA'S ORDERS. ORDER READBACK.
[2017-11-01 09:14] LABS: BASOPHILS % (AUTO) 0.1 % (0.0-2.0); EOSINOPHILS # (AUTO) 0.1 /CMM (0.0-0.7); EOSINOPHILS % (AUTO) 0.9 % (0.0-6.0); HEMATOCRIT 28 % (33-45); HEMOGLOBIN 9.2 g/dL (11.5-14.8); LYMPHOCYTES # (AUTO) 0.7 /CMM (0.8-4.8); MEAN CORPUSCULAR HEMOGLOBIN 31 PG (26.0-33.0); MEAN CORPUSCULAR HGB CONC 34 g/dl (31.0-36.0); MEAN CORPUSCULAR VOLUME 91 fL (82-100); MONOCYTES # (AUTO) 0.8 /CMM (0.1-1.30); NEUTROPHILS # (AUTO) 6.8 /CMM (1.8-8.9); PLATELET COUNT (AUTO) 180 /CMM (150-450); RDW COEFFICIENT OF VARIATION 14.1 (11.5-15.0); RED BLOOD CELL COUNT(AUTO) 3.01 MIL/uL (4.0-5.2); WHITE BLOOD COUNT (AUTO) 8.4 K/uL (4.3-11.0)
[2017-11-01] MEDS: IV D5/ 0.9% NACL 1,000 ML IV PRN (09:33)
[2017-11-01] MEDS: CLOTRIMAZOLE/BETAMETASONE DIPROPIONATE 15 GM TUBE TP SCH ×2 (09:38→17:19)
[2017-11-01] MEDS ORDERED: LIDOCAINE HCL/PF 1% 30 ML SDV ONE (09:43)
--- NOTE | 2017-11-01 11:22 | NUR ---
RN NOTES: NOTIFIED HECTOR DOLAN THAT PATIENT APPEARS MORE LETHARGIC TODAY. BLOOD PRESSURES RUNNING AT 80S/50S. D5NS PER ORDERS INFUSING
--- NOTE | 2017-11-01 11:35 | NUR ---
THORACENTESIS DONE AT 1055. VITALS DOCUMENTED. PATIENT DENYING PAIN, NONLABORED BREATHING NOTED ON 4 L NASAL CANNULA. NO FACIAL GRIMACING NOTED. DRESSING INTACT ON RIGHT UPPER BACK. NO BLEEDING NOTED. DR SHUKLA NOTIFIED THAT OUTPUT WAS AT 450 ML. NOTIFIED THAT BLOOD PRESSURE RUNNING AT 80S/50S. XRAY TAKEN PER HIS ORDERS WILL CONTINUE TO MONITOR PATIENT
[2017-11-01] MEDS ORDERED: IPRATROPIUM NEB FS 0.5 MG/2.5 ML AMPUL.NEB NEB PRN (12:30)
[2017-11-01] MEDS ORDERED: ALBUTEROL HALF STRENGTH 1.25 MG/3 ML VIAL.NEB NEB PRN (12:30)
--- NOTE | 2017-11-01 14:00 | NUR ---
RN NOTES BED CONFIRMED. PATIENT TO BE TRANSFERRED TO 3RD FLOOR. PAGED LASHELL MARTEL/ AWAITING FOR A CALL FOR REPORT
[2017-11-01] MEDS: ACETYLCYSTEINE 10% SOLN 400 MG/4 ML VIAL NEB SCH ×2 (14:16→23:46)
--- NOTE | 2017-11-01 14:38 | NUR ---
BS AT 70, SYSTEM OF GLUCOMETER DOWN. PATIENT STILL RESPONSIVE
--- NOTE | 2017-11-01 14:39 | NUR ---
PREVIOUS NOTE -ERROR LAST BLOOD SUGAR AT NOON WNL.
--- NOTE | 2017-11-01 15:00 | NUR ---
RN NOTES; PAGED DELONTE LOBO AGAIN
--- NOTE | 2017-11-01 15:50 | NUR ---
RN NOTES: SPOKE WITH DELONTE LOBO, REPORT GIVEN
--- NOTE | 2017-11-01 15:58 | NUR ---
RN NOTES RECEIVED REPORT FROM LASHELL VASQUEZ VIA PHONE. PT. WILL BE GOING TO ROOM 307 BED 1.
--- NOTE | 2017-11-01 16:53 | NUR ---
TRANSFERRED TO 3RD FLOOR- 1600 PATIENT CLEANED PRIOR TO TRANSFER. ALL BELONIGNS OBTAINED. MR YANEZ, OF PATIENT NOTIFIED OF TRANSFER. BP NOTED TO BE AT 81/48 WITH HR OF 116. NO FACIAL GRIMACING NOTED. PATIENT RESPONSIVE. ALERT OPENING EYES AND RESPONDING TO STIMULI AND NAME, CLEAR SPEECH. NO ONSET OF WEAKNESS NOTED. WHEN ASKED "ARE YOU IN PAIN?" PATIENT ANSWERING "NO" ALL BELONGINGS PLACED WITH PATIENT. PATIENT PLACED ON MONITOR --AFIB ON MONITOR. PER HISTORY OF PATIENT, PATIENT HAS ATRIAL FIBRILLATION. PATIENT TRANSFERRED UPSTAIRS IN HER BED IN THE ELEVATOR. IN THE ELEVATOR, HR NOTED TO BE INCREASING TO 140S. SPOKE TO PATIENT, PATIENT STILL RESPONSIVE WITH NONLABORED BREATHING. 1620- PATIENT PLACED IN 307-1 DELONTE RN NOTIFIED. PATIENT PLACED ON TELE MONITOR AND AFIB OF 130-140S NOTED. NO SIGNIFICANT CHANGES NOTED. PRIMARY RN NOTIFIED OF THIS NOTIFIED HECTOR DOLAN OF CHANGE IN STATUS
[2017-11-01] MEDS ORDERED: WARFARIN SODIUM 7.5 MG TABLET PO ONE (17:00)
--- NOTE | 2017-11-01 17:00 | NUR ---
RN NOTES RECEIVED PT. IN BED A&OX1 TO NAME, AND PAIN STIMULI. PT. WAS PLACED ON TELE MONITOR AND HAD UNCONTROLLED A FIB FROM 140 TO 160'S. PT. BLOOD SUGAR WAS 124 MG/DL. ROTARY SAW OPERATOR WAS NOTIFIED ABG'S WERE ORDERED STAT, AND ORDER WAS GIVEN TO TRANSFER PT. TO ICU. CHARGE NURSE WAS AWARE OF PT. CONDITION FOR TRANSFER.
[2017-11-01 17:18] LABS: ABG OXYGEN SATURATION 88.3 % (92.0-98.5); ABG PCO2 45.9 mmHg (35.0-45.0); ABG PH 7.378 (7.350-7.450); ABG PO2 59.3 mmHg (75.0-100.0); AaDO2 86.2 mmHg; COHb 1.3 % (0.5-1.5); MetHb 0.3 % (0.0-1.5); O2Hb 86.9 % (94.0-97.0); SITE, ABG Right Brachial
[2017-11-01] MEDS ORDERED: IV D5/ 0.9% NACL 1,000 ML IV PRN (17:30)
[2017-11-01] MEDS ORDERED: IV NS 0.9% 500 ML IV ONE (17:30)
[2017-11-01] MEDS ORDERED: Sodium Chloride 154 MEQ in IV 10% DEXTROSE 1,000 ML IV PRN (17:30)
--- NOTE | 2017-11-01 18:10 | NUR ---
RN NOTES TRANSFER TO ICU BED 261 PT. WAS TRANSFERRED TO ICU DUE TO PT.'S UNCONTROLLED A FIB, AND CONDITION. REPORT WAS GIVEN TO LASHELL RAHMAN AT BEDSIDE. PT. TOLERATED TRANSFER WELL.
--- NOTE | 2017-11-01 18:20 | NUR ---
RN STARS RECEIVED PATIENT FROM THE 3RD FLOOR FOR AFIB RVR AND HYPOTENSION. 500 CC BOLUS STILL RUNNING AND BP STABLE. ALERT AND AWAKE. STABLE VITAL SINGS. NO ACUTE DISTRESS. ABLE TO VERBALIZE NEEDS. UNABLE TO GET 2ND IV ACCESS AT THIS TIME. REGISTER CLERK MADE AWARE. WILL CONTINUE TO MONITOR AND PROVIDE CARE.
[2017-11-01] MEDS: CEFTRIAXONE 1 G in IV D5W 50 ML IV SCH (18:54)
[2017-11-01] MEDS: PANTOPRAZOLE 40 MG VIAL IV SCH (18:56)
[2017-11-01] MEDS ORDERED: IV NS 0.9% 250 ML IV ONE (19:00)
--- NOTE | 2017-11-01 20:45 | NUR ---
RN NOTE SPOKE WITH HECTOR DOLAN OUTSIDE RESIDENTIAL SALES PROFESSIONAL TO HOLD ANTICOAGULANT MEDICATIONS COUMADIN/LOVENOX BECAUSE PT WILL POSSIBLY HAVE PEG PLACEMENT. ALSO TOLD THAT HECTOR SPOKE WITH FAMILY AND THEY DECIDED THAT THEY WANT HER TO BE DNR/DNI. READBACK ORDERS PERFORMED.
--- NOTE | 2017-11-01 21:00 | NUR ---
RN NOTE RECEIVED NOTICE THAT PT CONVERTED INTO SINUS RHYTHM @ 1840. EKG ORDERED TO VERIFY RHYTHM. AWAITING RESULTS.
[2017-11-02] VITALS (24 sets, daily range): BP systolic 89–137; BP diastolic 55–109
[2017-11-02] MEDS: IPRATROPIUM NEB FS 0.5 MG/2.5 ML AMPUL.NEB NEB SCH ×4 (01:48→20:42)
[2017-11-02] MEDS: LORAZEPAM INJ 2 MG/ML VIAL IV PRN (02:47)
[2017-11-02 04:50] LABS: BASOPHILS % (AUTO) 0.1 % (0.0-2.0); EOSINOPHILS # (AUTO) 0.3 /CMM (0.0-0.7); EOSINOPHILS % (AUTO) 3.9 % (0.0-6.0); HEMATOCRIT 27 % (33-45); HEMOGLOBIN 9.1 g/dL (11.5-14.8); LYMPHOCYTES # (AUTO) 0.9 /CMM (0.8-4.8); MEAN CORPUSCULAR HEMOGLOBIN 31 PG (26.0-33.0); MEAN CORPUSCULAR HGB CONC 34 g/dl (31.0-36.0); MEAN CORPUSCULAR VOLUME 92 fL (82-100); MONOCYTES # (AUTO) 0.8 /CMM (0.1-1.30); MONOCYTES % (AUTO) 10.9 % (2.0-12.0); NEUTROPHILS # (AUTO) 5.5 /CMM (1.8-8.9); NEUTROPHILS % (AUTO) 73.1 % (43.0-81.0); PLATELET COUNT (AUTO) 184 /CMM (150-450); RDW COEFFICIENT OF VARIATION 14.4 (11.5-15.0); RED BLOOD CELL COUNT(AUTO) 2.93 MIL/uL (4.0-5.2); WHITE BLOOD COUNT (AUTO) 7.5 K/uL (4.3-11.0)
[2017-11-02 05:01] LABS: INR 1.15 (0.87-1.13)
[2017-11-02 05:13] LABS: CARBON DIOXIDE 29 mmol/L (21-32); CHLORIDE 111 mmol/L (98-107); CREATININE 0.5 mg/dL (0.6-1.3); GLUCOSE 101 mg/dL (74-106); MAGNESIUM 1.7 mg/dL (1.8-2.4); PHOSPHORUS 2.8 mg/dL (2.5-4.9); POTASSIUM 3.5 mmol/L (3.5-5.1); SODIUM SERUM 146 mmol/L (136-145); UREA NITROGEN, BLOOD 14 mg/dL (7-18)
--- NOTE | 2017-11-02 06:38 | NUR ---
RN NOTE PT REMAINS IN NO ACUTE DISTRESS IN BED. PT DID NOT HAVE ANY SIGNIFICANT CHANGE IN CONDITION DURING SHIFT. ALL NEEDS MET, ALL ORDERS CARRIED OUT. WILL ENDORSE CARE TO AM RN FOR CONTINUITY OF CARE.
[2017-11-02] MEDS ORDERED: Magnesium 1GM/D5W 100ML PREMIX 100 ML IV SCH (06:55)
--- NOTE | 2017-11-02 07:30 | NUR ---
[employer]ION[employer] ELECT[employer]ICS TECHNICIAN INITIAL NOTES RECEIVED PATIENT IN BED, AOX1, CONFUSED, PULLING OFF TELE MONITOR LEADS AND CLOTHING, REORIENTED TO UNIT, ON NASAL CANNULA 2L SATURATING WELL, ON TELE MONITORING SR-ST, IV L WRIST 22G, SL, AND R HAND 22G TKO NS, PATIENT CURRENTLY NPO, PATIENT IN DIAPER, BED IN LOW AND LOCKED POSITION CALL LIGHT WITHIN REACH, WILL CONTINUE TO MONITOR.
[2017-11-02] MEDS: ACETYLCYSTEINE 10% SOLN 400 MG/4 ML VIAL NEB SCH ×2 (07:33→14:34)
--- NOTE | 2017-11-02 07:33 | NUR ---
RT NOTE [facility] NOT GIVEN MED NOT AVAILABLE CALLED PHARMACY WILL FOLLOW UP
--- NOTE | 2017-11-02 07:33 | NUR ---
RT [facility] NOT AVAILABLE PHARMACY CALLED WILL FOLLOW UP
[2017-11-02] MEDS: Magnesium 1GM/D5W 100ML PREMIX 100 ML IV SCH ×2 (08:24→12:58)
[2017-11-02] MEDS: CLOTRIMAZOLE/BETAMETASONE DIPROPIONATE 15 GM TUBE TP SCH ×2 (08:25→16:25)
[2017-11-02] MEDS: GUAIFENESIN LA 600 MG TABLET.SA PO SCH ×2 (08:25→21:00)
[2017-11-02] MEDS: DOXYCYCLINE HYCLATE (100 MG) 100 MG TABLET PO SCH ×2 (08:26→21:00)
[2017-11-02] MEDS: ATENOLOL 25 MG TABLET PO SCH ×2 (08:26→21:00)
[2017-11-02] MEDS: FLECAINIDE ACETATE (100 MG) 100 MG TABLET PO SCH ×2 (08:26→21:00)
--- NOTE | 2017-11-02 10:12 | NUR ---
EMT P NOTES PATIENTS IV NOT FLUSHING, MULTIPLE ATTEMPTS TO GET NEW VEIN, INCLUDING ANOTHER EMT P AND ACCUVEIN MACHINE, CALLED CARPENTER'S HELPER FOR MIDLINE INSERTION
[2017-11-02] MEDS ORDERED: IV D5/0.45 NACL 1,000 ML IV SCH (12:30)
[2017-11-02] MEDS: DIGOXIN INJ 0.5 MG/2 ML AMPUL IV SCH ×3 (12:59→23:04)
[2017-11-02] MEDS: ENOXAPARIN SODIUM 60 MG/0.6 ML DISP.SYRIN SQ SCH ×2 (13:00→21:36)
[2017-11-02] MEDS: ALBUTEROL HALF STRENGTH 1.25 MG/3 ML VIAL.NEB NEB SCH ×2 (14:34→19:30)
[2017-11-02] MEDS ORDERED: WARFARIN SODIUM 5 MG TABLET PO SCH (17:00)
--- NOTE | 2017-11-02 17:00 | NUR ---
ACLS SPECIALIST NOTES PATIENT TRANSFERED TO [facility], BEDSIDE REPORT GIVEN TO STERLING LOBO, ALL BELONGINGS WITH PATIENT, VITALS STABLE.
--- NOTE | 2017-11-02 17:30 | NUR ---
[facility] RN NOTE RECEIVED PATIENT FROM ICU ALERT ,ORIENTED X2 PLACED ON TELE VS TAKEN ON ON 4L NC NO SOB NOTED , BED IN LOWEST AND LOCKED POSITION NOT IN ACUTE DISTRES, AT BEDSIDE
--- NOTE | 2017-11-02 18:00 | NUR ---
[facility] RN NOTE PATIENT HAS AFIB ON TELE MONITOR HR 170 DIGIXIN 0.25 VIP GIVEN ORDERED PATIENT ASYMPTOMATIC ON D51\2 NS AT 75 ML PER HOUR BP 107/65 CALLED TO ORQUIDEA DOLAN WITH ORDER TO GIVE BOLUS NS 250 ML , ORDER CARIED OUT
[2017-11-02] MEDS: CEFTRIAXONE 1 G in IV D5W 50 ML IV SCH (18:15)
[2017-11-02] MEDS: PANTOPRAZOLE 40 MG VIAL IV SCH (18:42)
--- NOTE | 2017-11-02 18:50 | NUR ---
[facility] RN NOTE STARTED TO INFUSE 250 ML OF NS BOLUS BP 96\52HR 152 AFIB
[2017-11-02] MEDS ORDERED: IV NS 0.9% 250 ML IV ONE (19:00)
[2017-11-02] MEDS: IV D5/0.45 NACL 1,000 ML IV PRN (19:40)
--- NOTE | 2017-11-02 19:40 | NUR ---
RN NOTE COMPLETED INFUSION OF 250cc NS BOLUS. VS: 107/60, 150-170s. ALERT TO NAME.
--- NOTE | 2017-11-02 20:20 | NUR ---
RN NOTE 1949 SPOKE WITH CHA COOPER, AND NOTIFIED SIDE GUIDER OF THE PATIENT'S CURRENT STATUS WITH HR IN 150-170s, AFIB RVR. BP BORDERLINE. PATIENT IS ON NPO FOR FAILED SWALLOW, ALL MEDS HAS BEEN ON HOLD FOR 2DAYS D/T NPO STATUS. MEDS REVIEWED. WILL CALL DR. HENRIQUEZ FOR FURTHER ORDERS. [address] HENRIQUEZ, NOTIFIED OF THE PATIENT'S CURRENT CONDITION WITH AFIB RVR WITH HR OF 150-170s WITH NPO STATUS. PER DR. HENRIQUEZ, GIVE 500cc NS BOLUS X1 NOW. NO OTHER MEDICATION REGIMEN D/T BORDERLINE BP. NOTED AND CARRIED OUT. CHA COOPER, UPDATED OF DR. HENRIQUEZ'S ORDERS. WILL GIVE BOLUS AND REASSESS PATIENT'S VS. 2014 500cc NS BOLUS STARTED, VS: 108/51, 154. AWAKE AND ALERT. ON MONITORING.
[2017-11-02] MEDS ORDERED: IV NS 0.9% 500 ML IV ONE ×2 (20:30→21:30)
[2017-11-02] MEDS ORDERED: DILTIAZEM HCL 25 MG IV IV ONE (20:30)
--- NOTE | 2017-11-02 21:40 | NUR ---
RN NOTE 2100 500cc OF NS BOLUS COMPLETED. VS: 97/73, 161. PATIENT'S BS CHECKED AND NOTED TO BE 103 WITH IVF OF D5 1/2NS AT 75CC/HR. RELAYED EKG TO CHA COOPER. N.O. OBTAINED FOR 2ND BAG OF 500cc NS BOLUS AND REPEAT EKG POST ADMINISTRATION OF DIGOXIN. ORDER NOTED AND CARRIED OUT. 2134 2ND BAG OF NS BOLUS STARTED. WILL MONITOR.
--- NOTE | 2017-11-02 22:48 | NUR ---
RN NOTES 2ND BAG OF NS 500cc BOLUS ADMINISTERED. VS: 94/52, HR IS STILL UP AND DOWN AT 140-160s. CHA COOPER, MADE AWARE. CONTINUE MONITORING.
[2017-11-03] VITALS (11 sets, daily range): BP systolic 114–156; BP diastolic 54–85
[2017-11-03] MEDS: ACETYLCYSTEINE 10% SOLN 400 MG/4 ML VIAL NEB SCH ×2 (00:16→08:51)
--- NOTE | 2017-11-03 00:37 | NUR ---
RN NOTE EKG DONE POST LAST DOSE OF DIGOXIN ADMINISTERED ORDERED. PATIENT'S HR MORE STABLE IN THE 120-130s, HIGHEST IS 140s (NON-SUSTAINING) VS: 114/60, 135. ENGINEER REMOTE CONTROL DIESELKENNETH, MADE AWARE. NNO.
[2017-11-03] MEDS: ALBUTEROL HALF STRENGTH 1.25 MG/3 ML VIAL.NEB NEB SCH ×3 (01:21→13:41)
[2017-11-03] MEDS: IPRATROPIUM NEB FS 0.5 MG/2.5 ML AMPUL.NEB NEB SCH ×3 (01:21→13:41)
[2017-11-03] MEDS: IV D5/0.45 NACL 1,000 ML IV PRN (05:45)
[2017-11-03 06:20] LABS: BASOPHILS % (AUTO) 0.6 % (0.0-2.0); EOSINOPHILS # (AUTO) 0.5 /CMM (0.0-0.7); EOSINOPHILS % (AUTO) 7.1 % (0.0-6.0); HEMATOCRIT 25 % (33-45); HEMOGLOBIN 8.4 g/dL (11.5-14.8); LYMPHOCYTES % (AUTO) 14.3 % (20.0-44.0); MEAN CORPUSCULAR HEMOGLOBIN 31 PG (26.0-33.0); MEAN CORPUSCULAR HGB CONC 33 g/dl (31.0-36.0); MEAN CORPUSCULAR VOLUME 92 fL (82-100); MONOCYTES # (AUTO) 0.8 /CMM (0.1-1.30); MONOCYTES % (AUTO) 11.9 % (2.0-12.0); NEUTROPHILS # (AUTO) 4.5 /CMM (1.8-8.9); NEUTROPHILS % (AUTO) 66.1 % (43.0-81.0); PLATELET COUNT (AUTO) 182 /CMM (150-450); RDW COEFFICIENT OF VARIATION 14.9 (11.5-15.0); RED BLOOD CELL COUNT(AUTO) 2.74 MIL/uL (4.0-5.2); WHITE BLOOD COUNT (AUTO) 6.8 K/uL (4.3-11.0)
[2017-11-03 06:26] LABS: INR 1.15 (0.87-1.13)
[2017-11-03 06:34] LABS: CALCIUM, SERUM 8.3 mg/dL (8.5-10.1); CARBON DIOXIDE 33 mmol/L (21-32); CHLORIDE 111 mmol/L (98-107); CREATININE 0.4 mg/dL (0.6-1.3); GLUCOSE 96 mg/dL (74-106); MAGNESIUM 1.8 mg/dL (1.8-2.4); POTASSIUM 3.1 mmol/L (3.5-5.1); SODIUM SERUM 145 mmol/L (136-145); UREA NITROGEN, BLOOD 11 mg/dL (7-18)
--- NOTE | 2017-11-03 07:11 | NUR ---
RN NOTES PATIENT SLEEPING COMFORTABLY, RESPONSIVE TO VERBAL AND TACTILE STIMULI. PATIENT IS AFIB WITH HR IN THE 90-110s. ON 2-4 LPM VIA NC, TITRATED PER PATIENT'S NEEDS AND TOLERANCE. KEPT CLEAN AND DRY. IVF ORDERED. NO DISTRESS. ENDORSED ACCORDINGLY.
--- NOTE | 2017-11-03 07:30 | NUR ---
CAROLINE RN NOTES PT IN BED, ASLEEP, LETHARGIC, CONFUSED, AROUSES TO TOUCH, RR 24, O2 SAT 93% ON 4L O2 NC, AFIB HR 128 ON TELE MONITOR, NO SIGNS OF PAIN, RT HAND G 2 WITH D5 1/2 NS AT 75 ML/HR, SITE CLEAR, NPO FOR NOW FOR POSSIBLE EGD AND PEG PLACEMENT, CONSENTS SIGNED, HOB ELEVATED, SEE NURSING FLOWSHEET FOR SKIN ISSUES, WILL TURN AND REPOSITION Q 2 HOURS. CALL LIGHT WITHIN REACH, WILL CONTINUTE TO MONITOR.
--- NOTE | 2017-11-03 08:30 | NUR ---
CAROLINE RN NOTES RECEIVED A CALL FROM RACHAEL TO DO NOT DO PROCEDURE YET UNTIL SHE ARRIVES. PER HIM, TOLD HIM THAT IT IS GONNA BE DONE ON SUNDAY. CHARGE NURSE MADE AWARE. NURSING CLARIFIER OPERATOR MAD AWARE.
[2017-11-03] MEDS: DOXYCYCLINE HYCLATE (100 MG) 100 MG TABLET PO SCH (09:00)
[2017-11-03] MEDS: GUAIFENESIN LA 600 MG TABLET.SA PO SCH (09:00)
[2017-11-03] MEDS: ATENOLOL 25 MG TABLET PO SCH (09:00)
[2017-11-03] MEDS: FLECAINIDE ACETATE (100 MG) 100 MG TABLET PO SCH (09:00)
--- NOTE | 2017-11-03 09:37 | NUR ---
RT NOTE: PATIENT FOUND AWAKE BUT CONFUSED ON ROOM AIR WITH SAT=70%. IMMEDIATELY PLACED ON OXYGEN WITH SATURATION INCREASING TO 92%. PATIENT WAS ALSO SUCTIONED AND GIVEN RESP TREATMENT. CPT DONE. AFTER TREATMENT PATIENT WAS PLACED ON 2LPM NASAL CANNULA WITH SAT=95%. PATIENT'S RR=30 AT THIS TIME. NOTIFIED NURSE EDEN, AND CHARGE NURSE
--- NOTE | 2017-11-03 10:00 | NUR ---
CAROLINE RN NOTES NURSING MICROGRINDER OPERATOR INFORMED DR. BUTTS VIA PHONE THAT PT'S REFUSED EGD AND PEG.
[2017-11-03] MEDS: ENOXAPARIN SODIUM 60 MG/0.6 ML DISP.SYRIN SQ SCH (10:02)
[2017-11-03] MEDS: CLOTRIMAZOLE/BETAMETASONE DIPROPIONATE 15 GM TUBE TP SCH (10:03)
--- NOTE | 2017-11-03 10:19 | NUR ---
CAROLINE RN NOTES PER DR. MARTINEZ RICHARDSON IVF. ORDERED 40 MEQ [4 BAGS] KCL.
[2017-11-03 10:26] LABS: ABG BASE EXCESS 2.4 mmol/L; ABG OXYGEN SATURATION 92.3 % (92.0-98.5); ABG PCO2 56.2 mmHg (35.0-45.0); ABG PH 7.332 (7.350-7.450); ABG PO2 71.7 mmHg (75.0-100.0); AaDO2 148.9 mmHg; COHb 1.1 % (0.5-1.5); MetHb 0.3 % (0.0-1.5); PEEP,BG 5 cm H2O; SITE, ABG Left Radial
[2017-11-03] MEDS: POTASSIUM CL. PREMIX PERIPHER. 50 ML IV SCH ×4 (11:24→14:18)
--- NOTE | 2017-11-03 11:26 | NUR ---
RT NOTE: LATE ENTRY-RT CALLED TO PATIENT'S ROOM DUE TO COPIOUS AMOUNTS OF BLOOD COMING OUT OF NOSE AND MOUTH. PATIENT WAS TAKEN OFF BIPAP PER AND PLACED ON 100% NON-REBREATHER AT 15LPM.
--- NOTE | 2017-11-03 11:36 | NUR ---
CAROLINE RN OTES PATIENT BLEEDING FROM THE NOSE. RT AT BEDSIDE. CALLED NETWORK CONTROL OPERATORS SUPERVISOR.
--- NOTE | 2017-11-03 11:50 | NUR ---
CAROLINE RN NOTES [employer] ARCHITECT CALLED OFF. STAFF AT BEDSIDE EARLIER: DR. SHUKLA,HECTOR DOLAN CHAMBER WORKER, YAMEL ICU LEGAL INTERN, VÍCTOR RN CAROLINE CHARGE NURSE, STALIN RT, CHERYL RN PRIMARY RN, IMDUR NURSING CAR DEALER. ER NURSE - CHIKA. PATIENT'S BTH NOSTRILS PACKED BY CHIKA ER NURSE.
[2017-11-03] MEDS ORDERED: LIDOCAINE 2% JEL 5 ML TUBE MC ONE (12:00)
--- NOTE | 2017-11-03 12:06 | NUR ---
CAROLINE RN NOTES PATIENT TRANSFERRED TO ICU RM 255. REPORT GIVEN TO BELA
--- NOTE | 2017-11-03 12:10 | NUR ---
CAROLINE RN NOTES RAPID RESPONSE DETAIL: 72 Y/O FEMALE PT DX: MUCUC PLUGGING VS POSSIBLE OBSTRUCTIVE TUMOR. FROM ICU. THIS AM, PT IS AO X 1, VERY LETHARGIC. AFIB HR 128 ON MONITOR. RT AT BEDSIDE EARLIER, DID SUCTIONING, AT 0953, PT WAS PLACED ON BIPAP, AT 1136, PT BLEEDING FROM BOTH NOSTRILS, RT WAS CALLED, AND ENTERPRISE ARCHITECT INITIATED. AT BEDSIDE WERE HECTOR DOLAN PLUSH WEAVER, DAVID ALMONTE AND CRYSTAL RT, YAMEL ICU NURSE,CHERYL GORE PRIMARY RN AND CHIKA ER NURSE WHO DID PACKING NOSTRILS. PATIENT TRANSFERRED TO ICU PER HECTOR DOLAN NP. PT'S AND DAUGHTER IN LAW AWARE. 1150 - RAPID RESPONSE ENDED. 1206 - PT TO ROOM 255 ICU
--- NOTE | 2017-11-03 12:20 | NUR ---
RN INITIAL NOTES RECEIVED PT FROM CAROLINE VIA BED. PT LETHARGIC. ON BIPAP. NO RESPIRATORY DISTRESS NOTED. NO SOB NOTED. PLACED COMFORTABLY IN THE ROOM. CONNECTED TO MONITOR. PT HAS NOSE PACKING, WILL CLOSELY MONITOR FOR BLEEDING. IV LINE IN PLACE. ONGOING POTASSIUM IVPB REPLACEMENT. INSERTED FC, YELLOW URINE, CLOUDY WITH SEDIMENTS NOTED. KEPT HOB ELEVATED. HECTOR DOLAN NP AND DR. SHUKLA IN THE ROOM FOR ASSESSMENT. WILL CONTINUE TO MONITOR.
[2017-11-03 13:56] LABS: ABG BASE EXCESS -0.6 mmol/L; ABG OXYGEN SATURATION 97.3 % (92.0-98.5); ABG PCO2 71.3 mmHg (35.0-45.0); ABG PH 7.215 (7.350-7.450); ABG PO2 132.1 mmHg (75.0-100.0); AaDO2 509.6 mmHg; MetHb 0.6 % (0.0-1.5); O2Hb 95.7 % (94.0-97.0); SITE, ABG Right Radial; VENT MODE, BG BIPAP 20/5 R18 100%
--- NOTE | 2017-11-03 14:04 | NUR ---
POST ABG RESULTS PER DR SHUKLA IPAP INCREASED TO 25. Addendum: 11/03/17 at 1405 by CARSON FONSECA RT Amended: Links added.
--- NOTE | 2017-11-03 15:00 | NUR ---
RN NOTES 1455 PT NOTED PALE, PULSE UNAPPRECIATED. NO RISE AND FALL OF CHEST NOTED. CHARGE NURSE AWARE. PT DNR/DNI. FAMILY AT BEDSIDE. HECTOR DOLAN NP NOTIFIED. Addendum: 11/03/17 at 1636 by NAYA FOSS RN PT PRONOUNCED BY 2 RN.
--- NOTE | 2017-11-03 16:00 | NUR ---
RN NOTES ADRIENNE RN (CHARGE NURSE) CALLED [facility] AND SPOKE WITH HUGO. ALL PERTINENT INFORMATION GIVEN. CASE #[id number]. AWAITING CALL BACK IF PT IS APPROPRIATE FOR ORGAN/TISSUE DONATION. CALLED [facility], [facility]. SPOKE WITH MARCOS, ALL PERTINENT INFORMATION GIVEN. WILL ARRANGE FOR TEACHER OF THE DEAF/HARD OF HEARING. FAMILY AT BEDSIDE AWARE.
--- NOTE | 2017-11-03 18:07 | NUR ---
RN NOTES WIN FROM [facility] PICKED UP THE REMAINS. NOTIFIED.
[2017-11-04] MEDS ORDERED: ENOXAPARIN SODIUM 40 MG/0.4 ML DISP.SYRIN SQ SCH (09:00)
== END 2017-11-03 14:55 | disposition expired | DRG 193 ==
LOC: ER 14:43 → TELE-TD 16:55 → TELE1 10-27 11:00 → MEDSG1 10-28 10:10 → MEDSG2 10-31 05:44 → TELE 11-01 15:55 → ICU 11-01 17:58 → TELE-TD 11-02 16:44 → ICU 11-03 11:58
PROVIDERS: ADMIT Nurse Practitioner Acute Care; ATTEND Nurse Practitioner Acute Care
PROC: 30233K1 Transfusion of Nonautologous Frozen Plasma into Peripheral Vein, Percutaneous Approach (ICD-10-PCS; 2017-10-31)
PROC: 0W993ZZ Drainage of Right Pleural Cavity, Percutaneous Approach (ICD-10-PCS; principal; 2017-11-01)
PROC: 5A09357 Assistance with Respiratory Ventilation, Less than 24 Consecutive Hours, Continuous Positive Airway Pressure (ICD-10-PCS; 2017-11-03)
DX: J15.9 Unspecified bacterial pneumonia (principal); I21.A1 Myocardial infarction type 2; J96.21 Acute and chronic respiratory failure with hypoxia; E43 Unspecified severe protein-calorie malnutrition; G92 Toxic encephalopathy; T17.890A Other foreign object in other parts of respiratory tract causing asphyxiation, initial encounter; J90 Pleural effusion, not elsewhere classified; D68.59 Other primary thrombophilia; D69.59 Other secondary thrombocytopenia; J96.22 Acute and chronic respiratory failure with hypercapnia; J98.11 Atelectasis; C34.90 Malignant neoplasm of unspecified part of unspecified bronchus or lung; J44.0 Chronic obstructive pulmonary disease with (acute) lower respiratory infection; E88.09 Other disorders of plasma-protein metabolism, not elsewhere classified; I48.0 Paroxysmal atrial fibrillation; D63.8 Anemia in other chronic diseases classified elsewhere; E87.6 Hypokalemia; Z87.891 Personal history of nicotine dependence; Z92.21 Personal history of antineoplastic chemotherapy; Z99.81 Dependence on supplemental oxygen; Z79.01 Long term (current) use of anticoagulants; Z66 Do not resuscitate; X58.XXXA Exposure to other specified factors, initial encounter; Y93.9 Activity, unspecified; Y92.009 Unspecified place in unspecified non-institutional (private) residence as the place of occurrence of the external cause; R13.10 Dysphagia, unspecified; E83.42 Hypomagnesemia; Z68.23 Body mass index [BMI] 23.0-23.9, adult; R04.0 Epistaxis; M81.0 Age-related osteoporosis without current pathological fracture
CPT/HCPCS: 31720; 36415; 36600; 70450-TC; 71045-TC; 71250-TC; 76942-TC; 80048-TC; 80053-TC; 80061-TC; 80076-TC; 81000-TC; 82040-TC; 82803-TC; 82962-TC; 83605-TC; 83735-TC; 83880; 84100-TC; 84443-TC; 84484-TC; 85025-TC; 85610-TC; 85730-TC; 86850-TC; 87040-TC; 87070-TC; 87075-TC; 87081-TC; 87086-TC; 87102-TC; 88305-TC; 88312-TC; 89051-TC; 92526; 92611-TC; 93307-TC; 94668-TC; 94760-TC; 94799-TC; 97110-TC; 97530-TC; A4606; A6403; C9113; J0456; J0696; J1160; J1200; J1650; J2060; J2543; J3430; J3475; J3480; J3490; J7030; J7040; J7042; J7050; J7060; P9017-BL; Q9967; Z7610